=== PATIENT | female | born 1935 | race Caucasian/White ===

== ENCOUNTER 2022-02-06 15:20 | Emergency (ER) | payer MEDICARE, BC ==
[2022-02-06 15:32] VITALS: BP 129/75; PULSE 62
[2022-02-06] MEDS ORDERED: Acetaminophen 325 MG Tab PO ONE (16:18)
== END 2022-02-06 16:43 | disposition home or self-care (01) ==
LOC: VM.ED 15:20
DX: S70.02XA Contusion of left hip, initial encounter (principal); E78.00 Pure hypercholesterolemia, unspecified; I10 Essential (primary) hypertension; K21.9 Gastro-esophageal reflux disease without esophagitis; Z88.0 Allergy status to penicillin; Z88.1 Allergy status to other antibiotic agents; Z91.013 Allergy to seafood; Z88.2 Allergy status to sulfonamides; Z88.5 Allergy status to narcotic agent; Z91.09 Other allergy status, other than to drugs and biological substances; Z79.899 Other long term (current) drug therapy; W18.09XA Striking against other object with subsequent fall, initial encounter
CPT/HCPCS: 73501; 99283; A9270

== ENCOUNTER 2022-04-01 18:15 | Emergency (ER) | payer MEDICARE, BC ==
[2022-04-01 18:33] VITALS: BP 189/92; PULSE 93
[2022-04-01] MEDS: Sodium Chloride 0.9% 1,000 ML IV SCH (18:49)
[2022-04-01] MEDS: cefTRIAXone 1 GM Vial IVPUSH ONE (19:55)
[2022-04-01] MEDS: Nystatin Susp 100,000 Unit/ML 5 ML UD Cup PO ONE (19:58)
== END 2022-04-01 20:30 | disposition home or self-care (01) ==
LOC: VM.ED 18:15
DX: B37.0 Candidal stomatitis (principal); E78.00 Pure hypercholesterolemia, unspecified; I12.9 Hypertensive chronic kidney disease with stage 1 through stage 4 chronic kidney disease, or unspecified chronic kidney disease; N18.9 Chronic kidney disease, unspecified; K21.9 Gastro-esophageal reflux disease without esophagitis; M10.9 Gout, unspecified; Z88.2 Allergy status to sulfonamides; Z91.09 Other allergy status, other than to drugs and biological substances; Z88.5 Allergy status to narcotic agent; Z88.0 Allergy status to penicillin; Z91.013 Allergy to seafood; Z88.8 Allergy status to other drugs, medicaments and biological substances; Z79.899 Other long term (current) drug therapy
CPT/HCPCS: 87651-QW; 96374; 99283; 99283-25; A9270-GY; J0696; J7030